=== PATIENT | female | born 1995 ===

== ENCOUNTER 2018-02-09 15:34 | Emergency (ER) | payer OTHER ==
[2018-02-09] MEDS ORDERED: AMOXICILLIN/CLAVULANATE POT 875/125 MG TAB PO ONE (16:23)
--- NOTE | 2018-02-09 16:23 | EDPHY ---
H & P Time Seen by Provider: 02/09/18 16:15 HPI/ROS: CHIEF COMPLAINT: Dog bite HISTORY OF PRESENT ILLNESS: 1 hr ago to the right hand, injury to the radial side of the right thumb at the IP joint into the radial side of the index finger just proximal to the PIP. No foreign body sensation and no weakness or numbness distally. REVIEW OF SYSTEMS: As above PAST MEDICAL HISTORY: Tonsillectomy, tetanus up-to-date Social history: General Appearance: Alert and conversant, cooperative. 1 cm superficial laceration radial surface of the right thumb the IP joint with preserved flexor and extensor tendon function. Normal perfusion and normal 2 point discrimination in the thumb and index finger. Normal flexion extension in the right index finger including FDP FDS and extensor. Emergency Department course/MDM: X-ray reviewed is negative. Wound care, oral Augmentin, secondary intention. Will return in 3 days for delayed primary closure if the wound is still open. No foreign body appreciated on direct inspection. Smoking Status: Never smoked Constitutional: Initial Vital Signs Temperature (C) 37.2 C 02/09/18 15:46 Heart Rate 81 02/09/18 15:46 Respiratory Rate 16 02/09/18 15:46 Blood Pressure 136/78 H 02/09/18 15:46 O2 Sat (%) 98 02/09/18 15:46 O2 Delivery Mode Room Air Allergies/Adverse Reactions: No Known Allergies Allergy (Unverified 02/09/18 15:46) Home Medications: Medication Instructions Recorded Amoxicillin/Clavulanate Pot 875 mg PO BID #14 tab 02/09/18 [Augmentin 875 mg tab] Bcp 02/09/18 MDM/Departure - MDM Imaging Results: Imaging Impressions Hand X-Ray 02/09/18 16:05 Impression: No acute osseous findings. Imaging: I viewed and interpreted images myself Medications Given: Discontinued Medications Amoxicillin/Clavulanate Potassium (Augmentin 875mg) 875 mg PO EDNOW ONE PRN Reason: Protocol Stop: 02/09/18 16:24 Last Admin: 02/09/18 16:42 Dose: 875 mg - Depart Disposition: Home, Routine, Self-Care Clinical Impression: Dog bite of right hand Qualifiers: Encounter type: initial encounter Qualified Code(s): S61.451A - Open bite of right hand, initial encounter Thumb laceration Qualifiers: Encounter type: sequela Damage to nail status: without damage Foreign body presence: without foreign body Laterality: right Qualified Code(s): S61.011S - Laceration without foreign body of right thumb without damage to nail, sequela Condition: Good Instructions: Animal Bite (ED) Additional Instructions: Return emergency department 72 hr if the wound is still open for consideration of delayed primary closure. Prescriptions: Amoxicillin/Clavulanate Pot [Augmentin 875 mg tab] 875 mg PO BID #14 tab Referrals: Reji Basurto MD [Medical Doctor] - As per Instructions
[2018-02-09 16:47] VITALS: BP 132/87
== END 2018-02-09 16:46 | disposition home or self-care (01) ==
DX: S61.451A Open bite of right hand, initial encounter (principal); S61.011S Laceration without foreign body of right thumb without damage to nail, sequela; W54.0XXA Bitten by dog, initial encounter; Y92.9 Unspecified place or not applicable; Y93.9 Activity, unspecified; Y99.9 Unspecified external cause status